=== PATIENT | male | born 1985 | race Two or more races ===

== ENCOUNTER 2024-12-13 17:06 | Emergency (ER) | payer MEDICAID, SELFPAY ==
[2024-12-13 17:26] VITALS: BP 134/70; PULSE 78; RESP 18; TEMP 37.1; O2SAT 99; BMI 27.8
--- NOTE | 2024-12-13 17:42 | XR_ITS ---
Examination: CT brain head without contrast. 2-D sagittal coronal reconstructions Date and time of exam:December 13, 2024 1820 hours INDICATIONS: Headaches beginning 3 days ago CTDI: vol (mGy):49.6 DLP: (mGycm):1058 Technique: Multiple CT axial sections of the brain have been obtained, 5 mm slice thickness. Contrast has not been administered. 2-D sagittal, coronal reconstructions have been obtained Low dose protocols were performed. One or more of the following dose reduction techniques were used; automated exposure control, adjustment of the mA and/or KV according to patient size, use of iterative reconstruction technique. Findings: No significant ventricular enlargement. Intra-axial or extra-axial hemorrhage density is not seen. No mass effect or midline shift Basal cisterns are not remarkable. Fourth ventricle is midline. Cranial vault intact. Impression: Negative for acute hemorrhage, mass effect or midline shift Advise clinical correlation follow-up accordingly
--- NOTE | 2024-12-13 17:44 | EDNOTE_ITS ---
ED Headache RME/HPI General Chief Complaint: Headache Stated Complaint: Headache x 3 days Time Seen by Provider: 12/13/24 17:31 Arrival date/time: 12/13/24 17:06 RME / HPI RME / HPI Narrative: Patient is a 39-year-old male who presents to the ED with complaint of headache for 3 days. States he has had headaches intermittently for the last 4 years. Patient feels that headache on the right side of his head. He denies any nausea or vomiting. Denies photophobia or phonophobia. No thunderclap onset. It is not the worst headache of his life. Related Data Previous Rx's ?Medication ?Instructions ?Recorded HYDROCODONE BIT/ACETAMINOPHEN 1 - 2 tab PO Q4-6HR PRN pain #14 11/29/13 (Vicodin 5/300) tabs ibuprofen 600 mg tablet 1 tab PO [id number] PRN pain #3 0 tabs 11/29/13 Hydrocodone/Acetaminophen * (NORCO 1 tab PO TID PRN PA IN #28 tabs 07/15/16 5/325 *) Allergies Allergy/AdvReac Type Severity Reaction Status Date / Time No Known Allergies Allergy Mild nka Uncoded 12/13/24 17:09 Review of Systems Review of Systems Narrative Review of Systems: Review of systems negative except as outlined in the HPI. ED Exam Narrative Physical exam: Constitutional: no acute distress, age appropriate, non-toxic Eyes: PERRL, conjunctivae w/o pallor, EOMI HENT: normocephalic, atraumatic. Oral mucosa moist Respiratory Effort: no stridor, effort normal, no retractions Breath sounds: Clear bilaterally; No rales, No rhonchi, No wheezing Cardiovascular: regular rhythm, S1 and S2 normal, no murmur Abdominal: soft; non-distended, non-tender Musculoskeletal: no deformities, no swelling, no LE edema Skin: warm, dry; No rash Neurology: alert, oriented X 4. Normal gait. Moves all extremities spontaneously. Cranial nerves II through XII intact Psychology: cooperative, normal mood Course Quality Measures none Orders Category Date Time Status CT head/brain wo con Stat Exams 12/13/24 17:42 Completed Ketorolac Inj [Toradol Inj] Med 12/13/24 18:51 Discontinued 30 mg IM X1 ONE Prochlorperazine Inj [Compazine Inj] Med 12/13/24 17:42 Discontinued 10 mg IM X1 ONE Vital Signs Vital signs: Vital Signs Temperature 98.8 F 12/13/24 17:26 Pulse Rate 78 12/13/24 17:26 Respiratory Rate 18 12/13/24 17:26 Blood Pressure 134/70 H 12/13/24 17:26 Pulse Oximetry (%) 99 12/13/24 17:26 Oxygen Delivery Method Room Air 12/13/24 17:26 Headache MDM Narrative MDM Narrative:: Patient with history as above presented with headache. History obtained from patient. Patient was nontoxic, stable. Ambulatory. Exam as above. Neurologic exam reassuring against acute stroke. Differential diagnoses: Tension headache, migraine headache, ICH. Head CT negative Overall presentation is consistent with low risk headache. Low suspicion for meningitis, intracranial hemorrhage, stroke, or other serious pathology. Patient was treated with headache medications with improvement in symptoms. Consideration was given for admission, but the patient was stable for outpatient management. Disposition: Discussed need to follow up diagnostics, including incidental findings. Discharged with instructions to obtain outpatient follow up of patient?s symptoms and findings, with strict return precautions if patient develops new or worsening symptoms. Patient data External records reviewed:: [facility] previous records Clinical information provided by:: patient Social determinants that could affect healthcare access:: none Patient has the following chronic illnesses:: none How is presenting disease/condition affected by chronic disease/condition?: no chronic disease Evaluation data The following diagnostics were reviewed and interpreted by me:: radiology exam(s) Lab and/or radiology exams considered but not ordered:: none Interpretation Summary: Examination: CT brain head without contrast. 2-D sagittal coronal reconstructions Date and time of exam:December 13, 2024 1820 hours INDICATIONS: Headaches beginning 3 days ago Findings: No significant ventricular enlargement. Intra-axial or extra-axial hemorrhage density is not seen. No mass effect or midline shift Basal cisterns are not remarkable. Fourth ventricle is midline. Cranial vault intact. Impression: Negative for acute hemorrhage, mass effect or midline shift Advise clinical correlation follow-up accordingly Medications / Prescriptions Medications or Prescriptions considered but not ordered:: none Medication administrations:: Medication Administration History Discontinued Medications Ketorolac Tromethamine (Ketorolac Inj 30 Mg/Ml Vial) 30 mg IM X1 ONE Stop: 12/13/24 18:52 Last Admin: 12/13/24 18:56 Dose: 30 mg Documented By: EO Prochlorperazine Edisylate (Prochlorperazine Inj 5 Mg/Ml Vial 2 Ml) 10 mg IM X1 ONE; Protocol Stop: 12/13/24 17:43 Last Admin: 12/13/24 18:58 Dose: 10 mg Documented By: EO See above Consultations Consultation(s) initiated? (list below): No Diagnosis Differential diagnosis headache: migraine, tension headache, subarachnoid hemorrhage and headache Most likely diagnosis given after review of the tests above:: Tension headache Admission Indicated Admission indicated?: not indicated Admission Request Was there a request for admission?: No Disposition Plan Disposition Plan: Discharge Discharge Attestation Discharge Attestation: The patient and all family members were given an opportunity to ask questions and understood the discharge instructions. Discharge instructions specifically effects, indications for sooner follow up or return to the emergency department, and the expected course of current diagnosis. Patient condition: Stable Discharge Plan Plan Patient Disposition: HOME (Self Care) Prescriptions/Referrals Prescriptions/Med Rec: No Action ibuprofen 600 MG tablet 1 tab PO [id number] PRN (Reason: pain) Qty: 30 0RF HYDROCODONE BIT/ACETAMINOPHEN (Vicodin 5/300) 1 TAB tablet 1 - 2 tab PO Q4-6HR PRN (Reason: pain) Qty: 14 0RF Hydrocodone/Acetaminophen * (NORCO 5/325 *) 1 TAB tablet 1 tab PO TID PRN (Reason: PAIN) Qty: 28 0RF Problem List Clinical Impression: Tension headache Patient/Caregiver Discharge Instructions Education Materials: ED Headache, Tension Additional Instructions: Follow-up with your PCP for further evaluation and treatment of headaches. Return to the ED for new or worsening symptoms. Print Language: Omani Stand Alone Forms: Elaine Award Info., Patient Portal Info Letter
[2024-12-13] MEDS: KETOROLAC INJ 30 MG/ML VIAL IM (18:56)
[2024-12-13] MEDS: PROCHLORPERAZINE INJ 5 MG/ML VIAL 2 ML 10 MG IM (18:58)
== END 2024-12-13 20:38 | disposition home or self-care (01) ==
LOC: SERX 21:26
PROVIDERS: Emergency Provider Emergency Medicine
DX: G44.209 Tension-type headache, unspecified, not intractable (principal)
CPT/HCPCS: 70450; 96372; 99284; J0780; J1885

== ENCOUNTER 2025-08-27 21:56 | Emergency (ER) | payer MEDICAID, SELFPAY ==
[2025-08-27 21:57] VITALS: BMI 28.8
[2025-08-27 22:21] VITALS: BP 147/91; PULSE 72; RESP 18; TEMP 37.1; O2SAT 97
--- NOTE | 2025-08-27 22:29 | XR_ITS ---
Examination: CT brain head without contrast. 2-D sagittal coronal reconstructions Date and time of exam: August 27, 2025 1140 hours INDICATIONS: Headache 15 days, CTDI: vol (mGy): 52.2 DLP: (mGycm): 1091 Technique: Multiple CT axial sections of the brain have been obtained, 5 mm slice thickness. Contrast has not been administered. 2-D sagittal, coronal reconstructions have been obtained Low dose protocols were performed. One or more of the following dose reduction techniques were used; automated exposure control, adjustment of the mA and/or KV according to patient size, use of iterative reconstruction technique. Findings: No significant ventricular enlargement. Intra-axial or extra-axial hemorrhage density is not seen. No mass effect or midline shift Basal cisterns are not remarkable. Fourth ventricle is midline. Cranial vault intact. Mild chronic ethmoid and sphenoid sinusitis Impression: Negative for acute hemorrhage, mass effect or midline shift
[2025-08-27 23:13] LABS: Basophils # (Auto) 0.0 Thou/mm3 (0.0-0.2); Basophils % (Auto) 1 % (0-2.5); Eosinophils # (Auto) 0.2 Thou/mm3 (0.0-0.5); Eosinophils % (Auto) 2 % (0-10); Hematocrit 44.9 % (41.0-53.0); Hemoglobin 15.5 g/dL (13.5-16.0); Immature Granulocytes Auto 0.01 Thou/mm3 (0.00-0.00); Lymphocytes # (Auto) 3.5 Thou/mm3 (1.0-4.8); Lymphocytes % (Auto) 48 % (10-50); Mean Corpuscular HGB Conc 34.5 g/dl (31.0-37.0); Mean Corpuscular Hemoglobin 30.9 pg (25.0-35.0); Mean Corpuscular Volume 90 fL (80-100); Monocytes # (Auto) 0.4 Thou/mm3 (0.0-0.8); Monocytes % (Auto) 6 % (0-12); Neutrophils # (Auto) 3.1 Thou/mm3 (1.8-7.7); Neutrophils % (Auto) 43 % (37-80); Nucleated Red Blood Cell # 0.00 Thou/mm3 (0.00-0.00); Nucleated Red Blood Cell % 0 /100 WBC (0); Platelet Count 163 Thou/mm3 (140-440); RDW Standard Deviation 40.3 fL (35.1-43.9); Red Blood Count 5.01 Miln/mm3 (4.50-5.90); White Blood Count 7.3 Thou/mm3 (3.8-10.6)
[2025-08-27 23:34] LABS: Alanine Aminotransferase 49 U/L (10-49); Albumin, Serum 4.6 gm/dL (3.5-5.0); Albumin/Globulin Ratio 1.8 (1.2-2.2); Alkaline Phosphatase 77 U/L (46-116); Anion Gap 8 (7-16); Aspartate Amino Transferase 32 U/L (0-34); BUN/Creatinine Ratio 13 Ratio (12-20); Bilirubin,Total 0.4 mg/dL (0.3-1.2); Blood Urea Nitrogen 10 mg/dL (9-23); Calcium 10.0 mg/dL (8.3-10.6); Calcium (Corrected) 10.0 mg/dL (8.5-10.1); Carbon Dioxide 29.6 mMol/L (20.0-31.0); Chloride 105 mMol/L (98-107); Creatinine (Component) 0.8 mg/dL (0.6-1.3); Estimated Creatinine Clearance 126.8 mL/min (>60); Globulin 2.6 gm/dL (2.3-3.5); Glucose 93 mg/dL (74-106); Osmolality,Calculated 283 (275-295); Potassium 3.8 mMol/L (3.4-5.1); Sodium 143 mMol/L (136-145); Total Protein 7.2 gm/dL (5.7-8.2); eGFR > 60 See Note
--- NOTE | 2025-08-28 00:16 | PD.EDHA ---
ED Headache RME/HPI General Chief Complaint: Headache Stated Complaint: HEADACHE X 15 DAYS Time Seen by Provider: 08/27/25 22:28 Arrival date/time: 08/27/25 21:56 This is a case of 42-year-old male with no medical history came into the emergency room due to headache mostly on the right side of his head for 15 days associated with nausea but no vomiting no dizziness no blurring of vision denies any numbness weakness or tingling sensation patient denies any injury or trauma persistence of the symptoms this patient decided to sought consult here in the emergency room Limitations: no limitations Related Data Previous Rx's ?Medication ?Instructions ?Recorded HYDROCODONE BIT/ACETAMINOPHEN 1 - 2 tab PO Q4-6HR PRN pain #14 11/29/13 (Vicodin 5/300) tabs ibuprofen 600 mg tablet 1 tab PO [id number] PRN pain #30 tabs 11/29/13 Hydrocodone/Acetaminophen * (NORCO 1 tab PO TID PRN PAIN #28 tabs 07/15/16 5/325 *) amoxicillin 875 mg-potassium 1 tab PO BID #20 tabs 08/28/25 clavulanate 125 mg tablet [id number]-yqurnsdybnbjo-mrihvkap 1 tab PO Q6H PRN pain #10 tabs 08/28/25 50 mg-325 mg-40 mg tablet fluticasone propionate 50 1 spray intranasal BID #16 grams 08/28/25 mcg/actuation nasal spray,suspension (Flonase Allergy Relief) ondansetron 4 mg disintegrating 4 mg PO Q8H PRN nausea and 08/28/25 tablet vomiting #10 tabs Allergies Allergy/AdvReac Type Severity Reaction Status Date / Time No Known Allergies Allergy Mild nka Uncoded 12/13/24 17:09 Review of Systems Review of Systems Systems Reviewed: All systems reviewed, normal except as documented Constitutional Constitutional: Reports system reviewed and no additional complaints, except as documented and Reports as per HPI Eyes Eyes: Reports system reviewed and no additional complaints, except as documented and Reports as per HPI ENT Ears, Nose, Mouth, and Throat: Reports system reviewed and no additional complaints, except as documented and Reports as per HPI Cardiovascular Cardiovascular: Reports system reviewed and no additional complaints, except as documented and Reports as per HPI Respiratory Respiratory: Reports system reviewed and no additional complaints, except as documented and Reports as per HPI Gastrointestinal Gastrointestinal: Reports system reviewed and no additional complaints, except as documented and Reports as per HPI Genitourinary Genitourinary: Reports system reviewed and no additional complaints, except as documented and Reports as per HPI Integumentary/Breasts Skin/Breast: Reports system reviewed and no additional complaints, except as documented and Reports as per HPI Neurologic Neurologic: Reports system reviewed and no additional complaints, except as documented and Reports as per HPI Past Medical History Social History SMOKING STATUS: Current some day smoker ED Exam General Limitations: Present no limitations General appearance: Present alert, in no apparent distress and other (Patient is awake alert oriented not in distress nontoxic looking well-hydrated well-nourished) Head Head exam: Present atraumatic, normocephalic and normal inspection Eye Eye exam: Present normal appearance, PERRL, EOMI and other (PERRL EOM intact normal conjunctiva no papilledema no hyphema) ENT ENT exam: Present normal exam, normal oropharynx, mucous membranes moist and other (Throat and ear is normal bilateral turbinates and nostrils were swollen and red no nasal deviation no nasal polyps) Neck Neck exam: Present normal inspection, full ROM, trachea midline and other; Absent tenderness, meningismus, lymphadenopathy or thyromegaly Chest Chest inspection: Present normal inspection and symmetric chest wall rise; Absent tenderness Respiratory Respiratory exam: Present normal lung sounds bilaterally; Absent respiratory distress, wheezes, stridor, accessory muscle use or prolonged expiratory phase Cardiovascular Cardiovascular exam: Present regular rate, normal rhythm and normal heart sounds; Absent bradycardia, tachycardia, irregular rhythm, systolic murmur or diastolic murmur Abdominal Exam Abdominal exam: Present soft and normal bowel sounds; Absent distention, tenderness, guarding, rebound, rigidity, diminished bowel sounds, hyperactive bowel sounds, hypoactive bowel sounds or organomegaly Extremities Exam Extremities exam: Present normal inspection and full ROM Back Exam Back exam: Present normal inspection and full ROM Neurological Exam Neurological exam: Present alert, oriented X3, CN II-XII intact, normal gait, reflexes normal and other (Awake alert oriented x 4 no focal deficit GCS 15/15 steady gait motor or sensory reflex in all extremities were normal memory intact no slurring speech no facial droop); Absent motor sensory deficit Psychiatric Psychiatric exam: Present normal affect and normal mood Skin Skin exam: Present warm, dry, intact, normal color and other Course Quality Measures none Orders Category Date Time Status CT head/brain wo con Stat Exams 08/27/25 22:29 Completed CBC Stat Lab 08/27/25 22:54 Completed CMP [Comprehensive Metabolic Panel] Stat Lab 08/27/25 22:54 Completed HYDROcodone*/APAP 5/325 [[place] 5/325] Med 08/28/25 00:12 Once 1 tab PO X1 ONE Ondansetron Odt [Zofran Odt] Med 08/28/25 00:12 Once 4 mg PO X1 ONE Vital Signs Vital signs: Vital Signs Temperature 98.7 F 08/27/25 22:21 Pulse Rate 72 08/27/25 22:21 Respiratory Rate 18 08/27/25 22:21 Blood Pressure 147/91 H 08/27/25 22:21 Pulse Oximetry (%) 97 08/27/25 22:21 Oxygen Delivery Method Room Air 08/27/25 22:21 Oxygen saturation is 97% in room air Headache MDM Narrative MDM Narrative:: This is a case of 42-year-old male with no medical history came into the emergency room due to headache mostly on the right side of his head for 15 days associated with nausea but no vomiting no dizziness no blurring of vision denies any numbness weakness or tingling sensation patient denies any injury or trauma persistence of the symptoms this patient decided to sought consult here in the emergency room physical examination patient is awake alert oriented not in distress nontoxic looking well-hydrated well-nourished PERRL EOM intact normal conjunctiva no papilledema no hyphema HEENT exam noted both nostrils were swollen turbinates are swollen with redness no nasal polyps no nasal deviation both sinuses were tender patient neurological exam is normal awake alert oriented x 4 no focal deficit GCS 15/15 steady gait negative for meningeal sign the rest of the physical examination neurological exam is normal and unremarkable blood test showed no leukocytosis no anemia kidney liver function is normal no electrolyte imbalance patient CT scan showed unremarkable except with ethmoidal sinusitis based on my physical examination and history patient headache is possible due to sinusitis patient was given [place] Zofran which improved resolve the symptoms patient was discharged with Augmentin and Flonase for sinusitis and Fioricet and Zofran for headache he was also advised to see an neurologist for headache recurrence persistent worsening symptoms return precaution in the ER is advised keep hydrated is also advised Patient was discharged with comfortable condition walking with stable gait. Patient verbalized no further complains explained diagnosis and answered patient question. Patient is comfortable with the proposed management plan including the need to follow up with his/her primary care physician and any specialist if applicable Discussed patient for any urgent condition or worsening sx, He/She needed to go to emergency room immediately or call 911. Patient acknowledge the responsibility to follow up as instructed and to monitor her/his symptoms. For any persistence of the symptoms for more than 3-5 days return precaution advised. Discussed the result of the test and was given printed discharge instruction Patient data External records reviewed:: [facility] previous records Clinical information provided by:: patient Social determinants that could affect healthcare access:: none Patient has the following chronic illnesses:: None How is presenting disease/condition affected by chronic disease/condition?: no chronic disease Evaluation data The following diagnostics were reviewed and interpreted by me:: lab results and radiology exam(s) Lab and/or radiology exams considered but not ordered:: Reviewed Interpretation Summary: Reviewed Medications / Prescriptions Medications or Prescriptions considered but not ordered:: Given Medication administrations:: Medication Administration History Hydrocodone Bitart/Acetaminophen (Hydrocodone/Apap 5/325 Tablet) 1 tab PO X1 ONE Stop: 08/28/25 00:13 Ondansetron HCl (Ondansetron Odt 4 Mg Tabrap) 4 mg PO X1 ONE; Protocol Stop: 08/28/25 00:13 Given Consultations Consultation(s) initiated? (list below): No Diagnosis Differential diagnosis headache: migraine, tension headache, headache and sinusitis Most likely diagnosis given after review of the tests above:: Headache sinusitis Admission Indicated Admission indicated?: not indicated Explain why admission is indicated or not indicated:: Not indicated Admission Request Was there a request for admission?: No Admission Attestation Admission request attestation: Not indicated Disposition Plan Disposition Plan: Discharge Discharge Attestation Discharge Attestation: The patient and all family members were given an opportunity to ask questions and understood the discharge instructions. Discharge instructions specifically effects, indications for sooner follow up or return to the emergency department, and the expected course of current diagnosis. Patient condition: Stable Discharge Plan Plan Patient Disposition: HOME (Self Care) Patient condition on transfer: Stable Prescriptions/Referrals Prescriptions/Med Rec: New okhwudvnof-pfkmunhugocwm-pdmi 50-325-40 mg tablet 1 tab PO Q6H PRN (Reason: pain) Qty: 10 0RF ondansetron 4 mg tablet,disintegrating 4 mg PO Q8H PRN (Reason: nausea and vomiting) Qty: 10 0RF amoxicillin-pot clavulanate 875-125 mg tablet 1 tab PO BID Qty: 20 0RF fluticasone propionate [Flonase Allergy Relief] 50 mcg/actuation spray,suspension 1 spray intranasal BID Qty: 16 0RF Rx Instructions: administer into each nostril No Action ibuprofen 600 MG tablet 1 tab PO [id number] PRN (Reason: pain) Qty: 30 0RF HYDROCODONE BIT/ACETAMINOPHEN (Vicodin 5/300) 1 TAB tablet 1 - 2 tab PO Q4-6HR PRN (Reason: pain) Qty: 14 0RF Hydrocodone/Acetaminophen * (NORCO 5/325 *) 1 TAB tablet 1 tab PO TID PRN (Reason: PAIN) Qty: 28 0RF Referrals: No Primary/Family,Physician [Primary Care Provider] - In 1 week Problem List Clinical Impression: Headache, Sinusitis Patient/Caregiver Discharge Instructions Education Materials: Self-Care for Headaches, Self-Care for Sinusitis Additional Instructions: Follow-up with your primary care physician in 2 days for reevaluation and to be referred to neurologist for further evaluation and treatment of your headache recurrence persistent worsening symptoms or any emergent concern call 911 or go to the nearest emergency room take your medication as directed finish the course of antibiotic keep hydrated steam inhalation is advised do not put it first Print Language: Georgian Stand Alone Forms: Elaine Award Info., Patient Portal Info Letter PA/CHANCE Supervising Physician PA/INPATIENT CARE MANAGER RN Supervising Physician: Dr. Kenney Guthrie
[2025-08-28] MEDS: HYDROcodone/APAP 5/325 TABLET 1 TAB PO (00:23)
[2025-08-28] MEDS: ONDANSETRON ODT 4 MG TABRAP PO (00:23)
[2025-08-28 00:34] VITALS: BP 132/76; PULSE 72; RESP 16; TEMP 36.8; O2SAT 98
== END 2025-08-28 00:36 | disposition home or self-care (01) ==
PROVIDERS: Nurse Practitioner Family; Emergency Provider Emergency Medicine
DX: J32.9 Chronic sinusitis, unspecified (principal)
CPT/HCPCS: 36415; 70450; 80053; 85025; 99283; Q0162; A9270